=== PATIENT | female | born 1980 | race Caucasian/White ===

== ENCOUNTER 2019-08-24 15:40 | Emergency (ER) | payer OTHER ==
--- NOTE | 2019-08-24 16:15 | EDM.PDOC ---
ED HPI GENERAL MEDICAL PROBLEM - General Chief Complaint: Respiratory Problem Stated Complaint: FLU SYMPTOMS Time Seen by Provider: 08/24/19 16:15 Source of Information: Reports: Patient History Limitations: Reports: No Limitations - History of Present Illness INITIAL COMMENTS - FREE TEXT/NARRATIVE: HISTORY AND PHYSICAL: History of present illness: Patient is a 38-year-old female presents to the ED with complaint of cough and fevers. Patient states that for the past 5 days she has had pressure in her chest and yesterday developed a cough and body aches. She states that she fevers of 101F. She denies nausea, vomiting, diarrhea, abdominal pain, shortness of breath. She denies significant past medical history. Review of systems: As per history of present illness and below otherwise all systems reviewed and negative. Past medical history: As per history of present illness and as reviewed below otherwise noncontributory. Surgical history: As per history of present illness and as reviewed below otherwise noncontributory. Social history: No reported history of drug or alcohol abuse. Family history: As per history of present illness and as reviewed below otherwise noncontributory. Physical exam: General: Patient sitting comfortably in no acute distress and nontoxic appearing HEENT: Atraumatic, normocephalic, pupils reactive, negative for conjunctival pallor or scleral icterus, mucous membranes moist, throat clear, neck supple, nontender, trachea midline. No meningeal signs. Lungs: Clear to auscultation, breath sounds equal bilaterally, chest nontender. Heart: S1S2, regular, negative for clicks, rubs, or overt murmur. Abdomen: Soft, nondistended, nontender. Negative for masses or hepatosplenomegaly. Negative for costovertebral tenderness. No rigidity, rebound , guarding. Pelvis: Stable nontender. Genitourinary: Deferred. Rectal: Deferred. Extremities: Atraumatic, negative for cords or calf pain. Neurovascular unremarkable. Neuro: Awake, alert, oriented. Cranial nerves II through XII unremarkable. Cerebellum unremarkable. Motor and sensory unremarkable throughout. Exam nonfocal. Notes: Diagnostics: Influenza, CXR, EXG Therapeutics: none Prescriptions: Ventolin inhaler, azithromycin Impression: Acute bronchitis Plan: Take medications as instructed Follow up with primary care provider Return to ED as needed as discussed Definitive disposition and diagnosis as appropriate pending reevaluation and review of above. Other Treatments RESIDENTIAL THERAPIST: ibuprofen chest Pain Score (Numeric/FACES): 6 - Related Data Allergies Allergy/AdvReac Type Severity Reaction Status Date / Time codeine Allergy Headache Verified 08/24/19 15:58 Home Meds: Home Meds Albuterol [Ventolin HFA] 1 puff INH Q4H #1 inhaler 08/24/19 [Rx] Azithromycin [Zithromax] 250 mg PO ASDIRECTED #1 dosepk 08/24/19 [Rx] Levothyroxine Sodium [Synthroid] 137 mcg PO DAILY 08/24/19 [History] Past Medical History Cardiovascular History: Reports: High Cholesterol Psychiatric History: Reports: Anxiety, Depression Oncologic (Cancer) History: Reports: Thyroid - Infectious Disease History Infectious Disease History: Reports: Chicken Pox - Past Surgical History GI Surgical History: Reports: Cholecystectomy Social & Family History - Tobacco Use Smoking Status *Q: Never Smoker Second Hand Smoke Exposure: No - Caffeine Use Caffeine Use: Reports: Coffee, Tea - Recreational Drug Use Recreational Drug Use: No ED ROS GENERAL - Review of Systems Review Of Systems: Comprehensive ROS is negative, except as noted in HPI. ED EXAM, GENERAL - Physical Exam Exam: See Below (see dictation) Course - Vital Signs Last Recorded V/S: Last Vital Signs Temp 98.7 F 08/24/19 15:59 Pulse 98 08/24/19 15:59 Resp 16 08/24/19 15:59 BP 149/96 H 08/24/19 15:59 Pulse Ox 97 08/24/19 15:59 - Orders/Labs/Meds Orders: Active Orders 24 hr Category Date Time Status EKG Documentation Completion [RC] STAT Care 08/24/19 16:13 Active Departure - Departure Time of Disposition: 17:33 Disposition: Home, Self-Care 01 Condition: Good Clinical Impression: Acute bronchitis - Discharge Information Referrals: Alton Burgos MD [Primary Care Provider] - Forms: ED Department Discharge Additional Instructions: The following information is given to patients seen in the emergency department who are being discharged to home. This information is to outline your options for follow-up care. We provide all patients seen in our emergency department with a follow-up referral. The need for follow-up, as well as the timing and circumstances, are variable depending upon the specifics of your emergency department visit. If you don't have a primary care physician on staff, we will provide you with a referral. We always advise you to contact your personal physician following an emergency department visit to inform them of the circumstance of the visit and for follow-up with them and/or the need for any referrals to a consulting specialist. The emergency department will also refer you to a specialist when appropriate. This referral assures that you have the opportunity for follow-up care with a specialist. All of these measure are taken in an effort to provide you with optimal care, which includes your follow-up. Under all circumstances we always encourage you to contact your private physician who remains a resource for coordinating your care. When calling for follow-up care, please make the office aware that this follow-up is from your recent emergency room visit. If for any reason you are refused follow-up, please contact the [facility] Emergency Department at and asked to speak to the emergency department charge nurse. [facility] [address] [place] [id number] [place] [address] Take medications as instructed Follow up with primary care provider Return to ED as needed as discussed Sepsis Event Note - Evaluation Sepsis Screening Result: No Definite Risk - Focused Exam Vital Signs: Vital Signs Temp Pulse Resp BP Pulse Ox 08/24/19 15:59 98.7 F 98 16 149/96 H 97 Date Exam was Performed: 08/24/19 Time Exam was Performed: 17:32 - My Orders Last 24 Hours: My Active Orders 08/24/19 16:13 EKG Documentation Completion [RC] STAT - Assessment/Plan Last 24 Hours: My Active Orders 08/24/19 16:13 EKG Documentation Completion [RC] STAT
--- NOTE | 2019-08-24 17:32 | CR ---
Chest: 2 views of the chest were obtained. Comparison: No prior chest imaging. Heart size and mediastinum are normal. Lungs are clear with no acute parenchymal change. Bony structures are unremarkable. Surgical clips are seen within the upper abdomen. Impression: 1. Nothing acute is appreciated on 2 view chest x-ray. Diagnostic code #2 Study was dictated in [place] Standard Time
== END 2019-08-24 17:47 | disposition home or self-care (01) ==
LOC: MW.ED 15:40
DX: J20.9 Acute bronchitis, unspecified (principal); Z88.5 Allergy status to narcotic agent
CPT/HCPCS: 71046; 71046-26; 87804; 93005; 99284-25

== ENCOUNTER 2020-05-22 07:13 | Day surgery (SDC) | payer OTHER ==
[~2020-05-22 07:13] MED LIST: Glycopyrrolate 0.2 MG/ML SDV ONE; Lactated Ringers 1,000 ML IV SCH; Lidocaine 2% 5 ML SDV ONE; Midazolam 1 MG/ML 2 ML SDV ONE; Propofol 200 MG/20 ML SDV ONE; Sodium Chloride 0.9% 10 ML SDV IV PRN; Sodium Chloride 0.9% 10 ML Syringe FLUSH PRN; Sodium Chloride 0.9% 2.5 ML Syringe FLUSH PRN
--- NOTE | 2020-05-22 07:44 | PCM.PREANE ---
Preanesthetic Assessment - Anesthesia/Transfusion/Family Hx Anesthesia History: Prior Anesthesia Without Reaction Family History of Anesthesia Reaction: No Transfusion History: No Prior Transfusion(s) Intubation History: Unknown - Review of Systems General: No Symptoms Pulmonary: No Symptoms Cardiovascular: No Symptoms Gastrointestinal: Other (severe constipation) Neurological: No Symptoms Other: Reports: None - Physical Assessment Vital Signs: Last Vital Signs Temp 36.1 C 05/22/20 07:20 Pulse 81 05/22/20 07:20 Resp 16 05/22/20 07:20 BP 138/90 05/22/20 07:20 Pulse Ox 96 05/22/20 07:20 Height: 5 ft 3 in Weight: 108.862 kg ASA Class: 2 Mental Status: Alert & Oriented x3 Airway Class: Mallampati = 2 Dentition: Reports: Normal Dentition, Missing Tooth/Teeth (multiple on the back side) Thyro-Mental Finger Breadths: 3 Mouth Opening Finger Breadths: 3 ROM/Head Extension: Full Lungs: Clear to Auscultation, Normal Respiratory Effort Cardiovascular: Regular Rate, Regular Rhythm - Allergies Allergies/Adverse Reactions: Allergies Allergy/AdvReac Type Severity Reaction Status Date / Time adhesive tape Allergy Rash Verified 05/16/20 12:50 codeine Allergy Headache Verified 05/16/20 12:31 - Blood Blood Available: No - Anesthesia Plan Pre-Op Medication Ordered: None - Acknowledgements Anesthesia Type Planned: MAC Pt an Appropriate Candidate for the Planned Anesthesia: Yes Alternatives and Risks of Anesthesia Discussed w Pt/Guardian: Yes Pt/Guardian Understands and Agrees with Anesthesia Plan: Yes PreAnesthesia Questionnaire HEENT History: Reports: Impaired Vision Other HEENT History: wears glasses Cardiovascular History: Reports: High Cholesterol Respiratory History: Reports: None Gastrointestinal History: Reports: GERD Genitourinary History: Reports: None Musculoskeletal History: Reports: Fracture Other Musculoskeletal History: toe Neurological History: Reports: Migraines Psychiatric History: Reports: Anxiety, Depression Endocrine/Metabolic History: Reports: Obesity/BMI 30+ (BMI 42.5) Hematologic History: Reports: None Immunologic History: Reports: None Oncologic (Cancer) History: Reports: Thyroid (2016) Dermatologic History: Reports: Eczema, Other (See Below) Other Dermatologic History: 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 - Infectious Disease History Infectious Disease History: Reports: Chicken Pox, Scarlet Fever Other Infectious Disease History: when a child - Past Surgical History Head Surgeries/Procedures: Reports: None HEENT Surgical History: Reports: None Cardiovascular Surgical History: Reports: None GI Surgical History: Reports: Cholecystectomy, Colonoscopy (at ae 19), EGD (at age 19) Female Surgical History: Reports: Tubal Ligation Endocrine Surgical History: Reports: Thyroidectomy Musculoskeletal Surgical History: Reports: None Oncologic Surgical History: Reports: Other (See Below) Other Oncologic Surgeries/Procedures: states had thyroidectomy and radioactive iodine treatment Dermatological Surgical History: Reports: None - SUBSTANCE USE Tobacco Use Status *Q: Former Tobacco User Tobacco Use Within Last Twelve Months: Cigarettes - HOME MEDS Home Medications: Home Meds Levothyroxine Sodium [Synthroid] 125 mcg PO DAILY 08/24/19 [History] ARIPiprazole [Abilify] 1 tab PO DAILY 05/16/20 [History] Clindamycin Phosphate [Cleocin T 1% Gel] 1 applic TOP ASDIRECTED 05/16/20 [History] Diclofenac Sodium [Voltaren] 1 tab PO BID 05/16/20 [History] Doxycycline [Vibramycin] 1 tab PO BID 05/16/20 [History] Econazole Nitrate 1 applic TOP DAILY 05/16/20 [History] LORazepam [Ativan] 1 tab PO BID PRN 05/16/20 [History] Liothyronine Sodium 1 tab PO DAILY 05/16/20 [History] Mometasone Furoate/Dimethicone [Quinixil 0.1% Cream-5% Crm Kit] 1 applic TOP ASDIRECTED 05/16/20 [History] Omeprazole 1 tab PO DAILY 05/16/20 [History] Sertraline [Zoloft] 1 tab PO DAILY 05/16/20 [History] atorvaSTATin Calcium [Atorvastatin Calcium] 1 tab PO DAILY 05/16/20 [History] - CURRENT (IN HOUSE) MEDS Current Meds: Current Medications Lactated Ringer's (Ringers, Lactated) 1,000 mls @ 125 mls/hr IV ASDIRECTED DM Last Admin: 05/22/20 07:30 Dose: 125 mls/hr Documented by: Lactated Ringer's (Ringers, Lactated) 1,000 mls @ 125 mls/hr IV ASDIRECTED DM Sodium Chloride (Saline Flush) 10 ml FLUSH ASDIRECTED PRN PRN Reason: Keep Vein Open Sodium Chloride (Saline Flush) 2.5 ml FLUSH ASDIRECTED PRN PRN Reason: Keep Vein Open Sodium Chloride (Saline Flush) 10 ml FLUSH ASDIRECTED PRN PRN Reason: Keep Vein Open Sodium Chloride (Saline Flush) 2.5 ml FLUSH ASDIRECTED PRN PRN Reason: Keep Vein Open Sodium Chloride (Normal Saline) 10 ml IV ASDIRECTED PRN PRN Reason: IV Use Discontinued Medications Glycopyrrolate (Robinul) Confirm Administered Dose 0.2 mg .ROUTE .STK-MED ONE Stop: 05/22/20 07:09 Lidocaine (Xylocaine-Mpf 2%) Confirm Administered Dose 5 ml .ROUTE .STK-MED ONE Stop: 05/22/20 07:09 Midazolam HCl (Versed 1 Mg/Ml) Confirm Administered Dose 2 mg .ROUTE .STK-MED ONE Stop: 05/22/20 07:06 Propofol (Diprivan 20 Ml) Confirm Administered Dose 600 mg .ROUTE .STK-MED ONE Stop: 05/22/20 07:06
[2020-05-22] MEDS ORDERED: Propofol 200 MG/20 ML SDV ONE (09:02)
--- NOTE | 2020-05-22 09:28 | PCM.OPNOTE ---
- General Post-Op/Procedure Note Date of Surgery/Procedure: 05/22/20 Operative Procedure(s): EGD and biopsies. colonoscopy with polypectomies Findings: Gastritis Hemorrhoids Colon polyps Diverticulosis dictation number [id number] Pre Op Diagnosis: IBS, GERD Post-Op Diagnosis: Gastritis. Hemorrhoids. Colon polyps. Diverticulosis Anesthesia Technique: Moderate Sedation Primary Surgeon: Hernesto Davies Pathology: colon polyps EGD biopsies Complications: None Condition: Good Free Text/Narrative:: Intake & Output 05/21/20 05/22/20 05/22/20 22:59 06:59 14:59 Intake Total 950 Balance 950
--- NOTE | 2020-05-22 09:36 | PCM.POSTAN ---
POST ANESTHESIA ASSESSMENT - MENTAL STATUS Mental Status: Alert, Oriented - VITAL SIGNS Vital Signs: Last Vital Signs Temp 36.1 C 05/22/20 07:20 Pulse 73 05/22/20 09:25 Resp 20 05/22/20 09:25 BP 105/57 L 05/22/20 09:25 Pulse Ox 100 05/22/20 09:25 - RESPIRATORY Respiratory Status: Respiratory Rate WNL, Airway Patent, O2 Saturation Stable - CARDIOVASCULAR CV Status: Pulse Rate WNL, Blood Pressure Stable - GASTROINTESTINAL GI Status: No Symptoms - PAIN Pain Score: 0 - POST OP HYDRATION Hydration Status: Adequate & Stable - OBSERVATIONS Free Text/Narrative:: No anesthesia problems
--- NOTE | 2020-05-22 09:56 | PCM48HPAN ---
Post Anesthesia Note - EVALUATION WITHIN 48HRS OF ANESTHETIC Vital Signs in Normal Range: Yes Patient Participated in Evaluation: Yes Respiratory Function Stable: Yes Airway Patent: Yes Cardiovascular Function Stable: Yes Hydration Status Stable: Yes Pain Control Satisfactory: Yes Nausea and Vomiting Control Satisfactory: Yes Mental Status Recovered: Yes Vital Signs: Last Vital Signs Temp 36.1 C 05/22/20 07:20 Pulse 71 05/22/20 09:33 Resp 16 05/22/20 09:33 BP 118/59 L 05/22/20 09:33 Pulse Ox 100 05/22/20 09:33 - COMMENTS/OBSERVATIONS Free Text/Narrative:: No anesthesia problems
--- NOTE | 2020-05-22 12:09 | OR ---
SURGEON: KENNY PATRICK MD DATE OF PROCEDURE: 05/22/2020 PREOPERATIVE DIAGNOSES: 1. Gastroesophageal reflux disease. 2. Blood in stool. 3. Irritable bowel syndrome. POSTOPERATIVE DIAGNOSES: 1. Gastritis. 2. Hemorrhoids. 3. Colon polyps. 4. Scant diverticulosis. PROCEDURES PERFORMED: 1. Esophagogastroduodenoscopy with biopsies. 2. Colonoscopy with polypectomies. ANESTHESIA: With Anesthesiology. EXTENT OF COLONOSCOPY: To the cecum. WITHDRAWAL TIME FOR COLONOSCOPY: 19 minutes. LIMITATIONS: None. BOWEL PREP: Very good. REASON FOR PROCEDURE: The patient is a pleasant 39-year-old female. She says since she was 19, she has been told she had IBS. She goes to the bathroom about every 5 to 6 days. She says the first bowel movement is hard and then followed by liquid stool. This then cycles again. She does say after the hard bowel movement, she will see a little bit of blood in the stools. She also says she has hemorrhoids. The patient's last colonoscopy and EGD were back when she was 19 years old. She denies any first-degree relatives, but does have a first cousin with colon cancer. She says she does have GERD with feeling reflux; however, this is resolved as long as she takes omeprazole. PROCEDURE IN DETAIL: Physical examination was performed. The risks and benefits associated with the procedure were explained to the patient in detail. The patient verbalized understanding of the same. The patient was then connected to the appropriate monitoring devices and IV was started. EKG, pulse, pulse oximetry, blood pressure, and capnography were monitored throughout the procedure. Continuous oxygen and sedation were provided by the anesthesiologist. A bite block was placed and sedation began. After adequate sedation was achieved, an upper endoscope was advanced under direct visualization without difficulty into the upper GI tract. The anatomy and mucosa of the esophagus, GE junction, stomach, pylorus, and at least the second part of duodenum were inspected. Duodenum appeared normal. Scope was brought back to the stomach. Both retro and antegrade views of the stomach were done. The patient did have some mild gastritis, but no ulcerations seen in the stomach. Biopsies were taken of the pylorus to check for H pylori and also did perform random stomach biopsies. The scope was brought to the GE junction. The GE junction was approximately 37 cm from the incisors. The GE junction had a good squamocolumnar junction. The scope was brought back into the stomach was. The stomach was desufflated. Scope was brought up through the esophagus. The esophagus appeared normal. Scope was removed, and this part of the procedure was terminated. The gloves and scope were changed. The patient was placed in left lateral decubitus position, and a rectal exam was done. The patient did have some moderate-size external hemorrhoids. These were noninflamed. No stigmata of recent bleeding. Now, a well-lubricated Olympus colonoscope was entered into the rectum and advanced under direct visualization to the level of the cecum. The cecum was identified by both visual and anatomic landmarks. Photograph was taken of the cecal cap and ileocecal valve. The scope was then slowly withdrawn in a somewhat circular fashion looking at the color, texture, anatomy, and integrity of the mucosa from the cecum to the anal canal. The patient did have residual liquid stool. This was suctioned and irrigated out for a good look at the mucosa. The patient did have a polyp at 90 cm. This appeared to be in the transverse colon. This was removed. She had 2 polyps right next to each other. All polyps were removed with cold biopsy polypectomy along with hot snare polypectomy. The patient did have some very scant diverticulosis in her sigmoid colon. The patient had then 2 smaller polyps at 10 cm. These were both removed with cold biopsy polypectomy. The scope was retroflexed in the rectum. Again, she had some hemorrhoids, noninflamed. The scope was completely removed, and the procedure was terminated. ENDOSCOPIC DIAGNOSES: 1. Gastritis. 2. Hemorrhoids. 3. Colon polyps, 2 at 90 cm, and 2 at 10 cm. 4. Scant diverticulosis. RECOMMENDATIONS: Followup colonoscopy will depend on pathology. Most likely, will need another one in 3 years. She should try starting some type of bowel regimen to get her bowel movements more regular. Again, the patient may see me for hemorrhoids, but on her last clinic visit, she was not interested really in any repair. Also, if she gets her bowel movements better, these should improve. EGD. She did have gastritis and should continue her omeprazole and follow up with me in the clinic to go over the pathology. FILIPPO / ANDI /[id number] THOM
== END 2020-05-22 09:55 | disposition home or self-care (01) ==
LOC: MW.SDS 07:13
PROVIDERS: ATTEND Surgery
DX: D12.3 Benign neoplasm of transverse colon (principal); K29.70 Gastritis, unspecified, without bleeding; K57.30 Diverticulosis of large intestine without perforation or abscess without bleeding; K64.9 Unspecified hemorrhoids; F41.9 Anxiety disorder, unspecified; F32.9 Major depressive disorder, single episode, unspecified; E78.5 Hyperlipidemia, unspecified; K58.9 Irritable bowel syndrome, unspecified; K21.9 Gastro-esophageal reflux disease without esophagitis; E78.00 Pure hypercholesterolemia, unspecified; E66.9 Obesity, unspecified; Z68.41 Body mass index [BMI] 40.0-44.9, adult; Z79.899 Other long term (current) drug therapy; Z90.09 Acquired absence of other part of head and neck; Z88.5 Allergy status to narcotic agent; Z91.048 Other nonmedicinal substance allergy status
CPT/HCPCS: 43239; 45380; 45385; 81025; 88305; 88312; J2001; J2250; J2704; J3490; J7120; 00813

== ENCOUNTER 2021-04-25 13:32 | Emergency (ER) | payer BC ==
--- NOTE | 2021-04-25 13:56 | EDM.PDOC ---
ED HPI GENERAL MEDICAL PROBLEM - General Chief Complaint: General Stated Complaint: TOOTH PAIN Time Seen by Provider: 04/25/21 13:49 Source of Information: Reports: Patient History Limitations: Reports: No Limitations - History of Present Illness INITIAL COMMENTS - FREE TEXT/NARRATIVE: HISTORY AND PHYSICAL: History of present illness: The patient is a 40-year-old female who presents to the emergency room with complaint complaints of left lower posterior molar pain due to a broken tooth that happened approximately 1 month ago. The patient states that she has not had dental insurance and has been unable to see a dentist. She does state that her dental insurance should kick in and she hopes to see the dentist on Tuesday. Patient has not been on an antibiotic for this. The patient states that she has been using ibuprofen or Aleve along with Orajel. Patient denies any fever, chills, headache, change in vision, syncope or near syncope. Denies any chest pain, back pain, shortness of breath or cough. Denies any abdominal pain, nausea, vomiting, diarrhea, constipation or dysuria. Has not noted any blood in urine or stool. Patient has been eating and drinking appropriately. Review of systems: As per history of present illness and below otherwise all systems reviewed and negative. Past medical history: As per history of present illness and as reviewed below otherwise noncontributory. Surgical history: As per history of present illness and as reviewed below otherwise noncontributory. Social history: See social history for further information Family history: As per history of present illness and as reviewed below otherwise noncontributory. Physical exam: General: Well developed and well nourished. Alert and orientated x 3. Nontoxic in appearance and in no acute distress. Vital signs are stable and have been reviewed by me. Nursing notes were reviewed. HEENT: Atraumatic, normocephalic, pupils equal and reactive bilaterally, negative for conjunctival pallor or scleral icterus, mucous membranes moist, TMs normal bilaterally, throat clear, neck supple, nontender, trachea midline. Left posterior molar poor dentition along with broken tooth at the gumline. Noted erythema at the gumline. No obvious abscess noted. No drooling or trismus noted. No meningeal signs. No hot potato voice noted. Lungs: . Normal work of breathing, no accessory muscles used. Skin: Intact, warm, dry. No lesions or rashes noted. Hematologic: No petechiae or purpra. Mucosa appropriate color and normal nail bed color and refill. Extremities: Atraumatic, moves all extremities per self without difficulty or deficits, negative for cords or calf pain. Neurovascular unremarkable. Neuro: Awake, alert, oriented. Cranial nerves II through XII unremarkable. Cerebellum unremarkable. Motor and sensory unremarkable throughout. Exam nonfocal. Psychiatric: Mood and affect are appropriate. Normal thought process. Answering questions appropriately. Notes: *This patient was seen and evaluated during the 2019 SARS-CoV-2 novel coronavirus pandemic period. Community viral transmission is ongoing at time of this encounter and the emergency department is operating under pandemic response procedures. As needed above the patient is a 40-year-old female who presents to the emergency room with complaints of left lower posterior molar pain after fracturing her tooth approximately 1 month ago. The the area in question does appear to have an infection. I will treat the patient with Toradol and Tylenol in the emergency department and give her a dose of penicillin. I will describe penicillin VK 500 mg every 8 hours for 10 days and tramadol 50 mg p.o. every 4 hours as needed for pain #8. I instructed the patient that she needs to seek definitive care for this. Patient with mom. I have talked with the patient about today's findings, in addition to providing specific details for plan of care. Reassessment at the time of disposition demonstrates that the patient is in no acute distress. The patient is stable for discharge, counseling was provided and we discussed in great detail signs and symptoms that would prompt them to return to the Emergency Department. Medication, follow up and supportive care measures were reviewed and discussed. Voices understanding and is agreeable to plan of care. Denies any further questions or concerns at this time. Therapeutics: Tramadol 50 mg p.o., dental ball, penicillin 500 mg p.o. Prescription: Penicillin VK 500 mg p.o. every 8 hours for 10 days and tramadol 50 mg every 4 hours as needed #8 Impression: Dental caries Plan: 1. You were evaluated today on an emergent basis. Your left lower dental pain was evaluated and found to have an infection. We treated your pain with tramadol and/or a dental ball as the emergency department we gave you your first dose of penicillin. I have prescribed penicillin the 500 mg every 8 hours for 10 days and tramadol 50 mg by mouth every 4 hours as needed for pain #8. You need to keep your appointment Tuesday with your dentist for definitive care. 2. You can alternate Tylenol and ibuprofen as needed for pain and fever management. 3. We encourage you to follow up with your primary care provider and/or recommended specialist in the next few days for re-evaluation and further care/management. 4. If your symptoms should worsen, new symptoms develop or any of the signs and symptoms we discussed should arise please return to the emergency room or call 911 (if needed). Definitive disposition and diagnosis as appropriate pending reevaluation and review of above. Tooth/Teeth Pain Score (Numeric/FACES): 9 - Related Data Allergies Allergy/AdvReac Type Severity Reaction Status Date / Time adhesive tape Allergy Rash Verified 04/25/21 21:42 codeine Allergy Headache Verified 04/25/21 21:42 Home Meds: Home Meds Levothyroxine Sodium [Synthroid] 125 mcg PO DAILY 08/24/19 [History] ARIPiprazole [Abilify] 1 tab PO DAILY 05/16/20 [History] Clindamycin Phosphate [Cleocin T 1% Gel] 1 applic TOP ASDIRECTED 05/16/20 [History] Diclofenac Sodium [Voltaren] 1 tab PO BID 05/16/20 [History] Doxycycline [Vibramycin] 1 tab PO BID 05/16/20 [History] Econazole Nitrate 1 applic TOP DAILY 05/16/20 [History] LORazepam [Ativan] 1 tab PO BID PRN 05/16/20 [History] Liothyronine Sodium 1 tab PO DAILY 05/16/20 [History] Mometasone Furoate/Dimethicone [Quinixil 0.1% Cream-5% Crm Kit] 1 applic TOP ASDIRECTED 05/16/20 [History] Omeprazole 1 tab PO DAILY 05/16/20 [History] Sertraline [Zoloft] 1 tab PO DAILY 05/16/20 [History] atorvaSTATin Calcium [Atorvastatin Calcium] 1 tab PO DAILY 05/16/20 [History] Penicillin V Potassium 500 mg PO Q8HR #30 tab 04/25/21 [Rx] Past Medical History HEENT History: Reports: Impaired Vision Other HEENT History: wears glasses Cardiovascular History: Reports: High Cholesterol Respiratory History: Reports: None Gastrointestinal History: Reports: GERD Genitourinary History: Reports: None Musculoskeletal History: Reports: Fracture Other Musculoskeletal History: toe Neurological History: Reports: Migraines Psychiatric History: Reports: Anxiety, Depression Endocrine/Metabolic History: Reports: Obesity/BMI 30+ (BMI 42.5) Other Endocrine/Metabolic History: thyroid cancer 2016 Hematologic History: Reports: None Immunologic History: Reports: None Oncologic (Cancer) History: Reports: Thyroid (2016) Dermatologic History: Reports: Eczema, Other (See Below) Other Dermatologic History: 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 - Infectious Disease History Infectious Disease History: Reports: Chicken Pox, Scarlet Fever Other Infectious Disease History: when a child - Past Surgical History Head Surgeries/Procedures: Reports: None HEENT Surgical History: Reports: None Cardiovascular Surgical History: Reports: None GI Surgical History: Reports: Cholecystectomy, Colonoscopy (at ae 19), EGD (at age 19) Female Surgical History: Reports: Tubal Ligation Endocrine Surgical History: Reports: Thyroidectomy Musculoskeletal Surgical History: Reports: None Oncologic Surgical History: Reports: Other (See Below) Other Oncologic Surgeries/Procedures: states had thyroidectomy and radioactive iodine treatment Dermatological Surgical History: Reports: None Social & Family History - Caffeine Use Caffeine Use: Reports: Coffee, Tea ED ROS GENERAL - Review of Systems Review Of Systems: Comprehensive ROS is negative, except as noted in HPI. ED EXAM, GENERAL - Physical Exam Exam: See Below (See dictation) Course - Vital Signs Last Recorded V/S: Last Vital Signs Temp 97.5 F 04/25/21 14:00 Pulse 83 04/25/21 14:38 Resp 18 04/25/21 14:38 BP 138/82 04/25/21 14:38 Pulse Ox 97 04/25/21 14:38 - Orders/Labs/Meds Meds: Medications Discontinued Medications Generic Name Dose Route Start Last Admin Trade Name Freq PRN Reason Stop Dose Admin Benzocaine 2 each 04/25/21 14:11 04/25/21 14:34 Benzocaine 20% Topical [place] Ud MUCMEM 04/25/21 14:12 2 each ONETIME ONE Administration Ketorolac Tromethamine 60 mg 04/25/21 14:11 Ketorolac 60 Mg/2 Ml Sdv IM 04/25/21 14:12 ONETIME ONE Lidocaine HCl 15 ml 04/25/21 14:11 04/25/21 14:34 Lidocaine 2% Viscous Solution 15 Ml Cup PO 04/25/21 14:12 15 ml ONETIME ONE Administration Penicillin V Potassium 500 mg 04/25/21 14:19 04/25/21 14:35 Penicillin V Potassium 500 Mg Tab PO 04/25/21 14:20 500 mg ONETIME STA Administration Tramadol HCl 50 mg 04/25/21 14:14 04/25/21 14:35 Tramadol 50 Mg Tab PO 04/25/21 14:15 50 mg ONETIME ONE Administration Departure - Departure Time of Disposition: 14:28 Disposition: Home, Self-Care 01 Preliminary Cause of *Q: Cardiac Arrest Condition: Good Clinical Impression: Dental caries - Discharge Information *PRESCRIPTION DRUG MONITORING PROGRAM REVIEWED*: No *COPY OF PRESCRIPTION DRUG MONITORING REPORT IN PATIENT STEVE: No Prescriptions: Penicillin V Potassium 500 mg PO Q8HR #30 tab Instructions: Dental Caries, Adult, [id number] Referrals: Keily Shukla DO [Primary Care Provider] - Forms: ED Department Discharge Additional Instructions: The following information is given to patients seen in the emergency department who are being discharged to home. This information is to outline your options for follow-up care. We provide all patients seen in our emergency department with a follow-up referral. The need for follow-up, as well as the timing and circumstances, are variable depending upon the specifics of your emergency department visit. If you don't have a primary care physician on staff, we will provide you with a referral. We always advise you to contact your personal physician following an emergency department visit to inform them of the circumstance of the visit and for follow-up with them and/or the need for any referrals to a consulting specialist. The emergency department will also refer you to a specialist when appropriate. This referral assures that you have the opportunity for follow-up care with a specialist. All of these measure are taken in an effort to provide you with optimal care, which includes your follow-up. Under all circumstances we always encourage you to contact your private physician who remains a resource for coordinating your care. When calling for follow-up care, please make the office aware that this follow-up is from your recent emergency room visit. If for any reason you are refused follow-up, please contact the [facility] Emergency Department at and asked to speak to the emergency department charge nurse. Jarrett Peck [facility] - [facility] [address] [place] [id number] [facility] [address] [place] [address] Plan: 1. You were evaluated today on an emergent basis. Your left lower dental pain was evaluated and found to have an infection. We treated your pain with tramadol and/or a dental ball as the emergency department we gave you your first dose of penicillin. I have prescribed penicillin the 500 mg every 8 hours for 10 days and tramadol 50 mg by mouth every 4 hours as needed for pain #8. You need to keep your appointment Tuesday with your dentist for definitive care. 2. You can alternate Tylenol and ibuprofen as needed for pain and fever management. 3. We encourage you to follow up with your primary care provider and/or recommended specialist in the next few days for re-evaluation and further care/management. 4. If your symptoms should worsen, new symptoms develop or any of the signs and symptoms we discussed should arise please return to the emergency room or call 911 (if needed).
[2021-04-25] MEDS ORDERED: Ketorolac 60 MG/2 ML SDV IM ONE (14:11)
[2021-04-25] MEDS ORDERED: Lidocaine 2% Viscous Solution 15 ML Cup PO ONE (14:11)
[2021-04-25] MEDS ORDERED: Benzocaine 20% Topical Spray UD MUCMEM ONE (14:11)
[2021-04-25] MEDS ORDERED: traMADol 50 MG Tab PO ONE (14:14)
[2021-04-25] MEDS ORDERED: Penicillin V Potassium 500 MG Tab PO STA (14:19)
== END 2021-04-25 14:40 | disposition home or self-care (01) ==
LOC: MW.ED 13:32
DX: K02.9 Dental caries, unspecified (principal); E78.00 Pure hypercholesterolemia, unspecified; K21.9 Gastro-esophageal reflux disease without esophagitis; E66.9 Obesity, unspecified; Z68.41 Body mass index [BMI] 40.0-44.9, adult; Z91.048 Other nonmedicinal substance allergy status; Z88.5 Allergy status to narcotic agent; Z79.899 Other long term (current) drug therapy
CPT/HCPCS: 99282; A9270

== ENCOUNTER 2021-04-25 21:33 | Emergency (ER) | payer BC ==
[2021-04-25] MEDS ORDERED: Morphine 10 MG/ML Syringe IM ONE (21:55)
[2021-04-25] MEDS ORDERED: Ondansetron 4 MG Tab.DIS PO ONE (21:55)
--- NOTE | 2021-04-25 21:58 | EDM.PDOC ---
ED HPI GENERAL MEDICAL PROBLEM - General Chief Complaint: General Stated Complaint: TOOTH PAIN Time Seen by Provider: 04/25/21 21:45 - History of Present Illness INITIAL COMMENTS - FREE TEXT/NARRATIVE: 40-year-old female seen earlier today for left lower molar pain she has had gradually worsening pain for the last month but has more recently become bearable. She has an appointment with her dentist scheduled for the day after t omorrow. She presents because the tramadol and she was given here along with the lidocaine ball or not improving her symptoms. No fever no difficulty with swallowing. Dental pain is constant severe without radiation or other associated symptoms. Left Lower Tooth/Teeth Pain Score (Numeric/FACES): 9 - Related Data Allergies Allergy/AdvReac Type Severity Reaction Status Date / Time adhesive tape Allergy Rash Verified 04/25/21 21:42 codeine Allergy Headache Verified 04/25/21 21:42 Home Meds: Home Meds Levothyroxine Sodium [Synthroid] 125 mcg PO DAILY 08/24/19 [History] ARIPiprazole [Abilify] 1 tab PO DAILY 05/16/20 [History] Clindamycin Phosphate [Cleocin T 1% Gel] 1 applic TOP ASDIRECTED 05/16/20 [History] Diclofenac Sodium [Voltaren] 1 tab PO BID 05/16/20 [History] Doxycycline [Vibramycin] 1 tab PO BID 05/16/20 [History] Econazole Nitrate 1 applic TOP DAILY 05/16/20 [History] LORazepam [Ativan] 1 tab PO BID PRN 05/16/20 [History] Liothyronine Sodium 1 tab PO DAILY 05/16/20 [History] Mometasone Furoate/Dimethicone [Quinixil 0.1% Cream-5% Crm Kit] 1 applic TOP ASDIRECTED 05/16/20 [History] Omeprazole 1 tab PO DAILY 05/16/20 [History] Sertraline [Zoloft] 1 tab PO DAILY 05/16/20 [History] atorvaSTATin Calcium [Atorvastatin Calcium] 1 tab PO DAILY 05/16/20 [History] Penicillin V Potassium 500 mg PO Q8HR #30 tab 04/25/21 [Rx] Past Medical History HEENT History: Reports: Impaired Vision Other HEENT History: wears glasses Cardiovascular History: Reports: High Cholesterol Respiratory History: Reports: None Gastrointestinal History: Reports: GERD Genitourinary History: Reports: None Musculoskeletal History: Reports: Fracture Other Musculoskeletal History: toe Neurological History: Reports: Migraines Psychiatric History: Reports: Anxiety, Depression Endocrine/Metabolic History: Reports: Obesity/BMI 30+ Other Endocrine/Metabolic History: thyroid cancer 2016 Hematologic History: Reports: None Immunologic History: Reports: None Oncologic (Cancer) History: Reports: Thyroid Dermatologic History: Reports: Eczema, Other (See Below) Other Dermatologic History: 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 - Infectious Disease History Infectious Disease History: Reports: Chicken Pox, Scarlet Fever Other Infectious Disease History: when a child - Past Surgical History Head Surgeries/Procedures: Reports: None HEENT Surgical History: Reports: None Cardiovascular Surgical History: Reports: None GI Surgical History: Reports: Cholecystectomy, Colonoscopy, EGD Female Surgical History: Reports: Tubal Ligation Endocrine Surgical History: Reports: Thyroidectomy Musculoskeletal Surgical History: Reports: None Oncologic Surgical History: Reports: Other (See Below) Other Oncologic Surgeries/Procedures: states had thyroidectomy and radioactive iodine treatment Dermatological Surgical History: Reports: None Social & Family History - Family History Family Medical History: No Pertinent Family History - Tobacco Use Tobacco Use Status *Q: Never Tobacco User - Caffeine Use Caffeine Use: Reports: None - Recreational Drug Use Recreational Drug Use: No ED ROS GENERAL - Review of Systems Review Of Systems: See Below Free Text/Narrative/Comment: General: No fever. ENT: Per HPI Neck: No neck stiffness. Respiratory: No shortness of breath. Cardiac: No chest pain. Gastrointestinal: No nausea, vomiting or abdominal pain. ED EXAM, GENERAL - Physical Exam Exam: See Below Free Text/Narrative:: General Appearance: No acute distress, appears comfortable HEENT: Normocephalic/atraumatic, sclera anicteric, mucous membranes moist, left lower molar is clearly fractured no trismus no stridor no submental or sublingual swelling Neck: Normal range of motion Chest and Lungs: Normal work of breathing Cardiovascular: Intact distal perfusion Psychiatric: Appropriate, cooperative Course - Vital Signs Last Recorded V/S: Last Vital Signs Temp 98.2 F 04/25/21 21:43 Pulse 94 04/25/21 21:43 Resp 18 04/25/21 21:43 BP 153/95 H 04/25/21 21:43 Pulse Ox 97 04/25/21 21:43 - Orders/Labs/Meds Meds: Medications Discontinued Medications Generic Name Dose Route Start Last Admin Trade Name Tony PRN Reason Stop Dose Admin Morphine Sulfate 6 mg 04/25/21 21:55 Morphine 10 Mg/Ml Syringe IM 04/25/21 21:56 ONETIME ONE Ondansetron HCl 4 mg 04/25/21 21:55 Ondansetron 4 Mg Tab.Dis PO 04/25/21 21:56 ONETIME ONE Departure - Departure Time of Disposition: 21:57 Disposition: Home, Self-Care 01 Condition: Good Clinical Impression: Tooth fracture - Discharge Information *PRESCRIPTION DRUG MONITORING PROGRAM REVIEWED*: Yes *COPY OF PRESCRIPTION DRUG MONITORING REPORT IN PATIENT STEVE: No Instructions: Tooth Injuries, [id number] Referrals: Keily Shukla, [Primary Care Provider] - Forms: ED Department Discharge Additional Instructions: Please be sure to keep your follow-up appointment with your dentist on Tuesday. Do not take Elizabeth and tramadol together. Do not take the Elizabeth for the next 6 hours as you have been given a shot of morphine here in the emergency room. I also recommend that you take 600 mg of ibuprofen with food every 8 hours until you follow-up with a dentist. The following information is given to patients seen in the emergency department who are being discharged to home. This information is to outline your options for follow-up care. We provide all patients seen in our emergency department with a follow-up referral. The need for follow-up, as well as the timing and circumstances, are variable depending upon the specifics of your emergency department visit. If you don't have a primary care physician on staff, we will provide you with a referral. We always advise you to contact your personal physician following an emergency department visit to inform them of the circumstance of the visit and for follow-up with them and/or the need for any referrals to a consulting specialist. The emergency department will also refer you to a specialist when appropriate. This referral assures that you have the opportunity for follow-up care with a specialist. All of these measure are taken in an effort to provide you with opt imal care, which includes your follow-up. Under all circumstances we always encourage you to contact your private physician who remains a resource for coordinating your care. When calling for follow-up care, please make the office aware that this follow-up is from your recent emergency room visit. If for any reason you are refused follow-up, please contact the [facility] Emergency Department at and asked to speak to the emergency department charge nurse. Sepsis Event Note (ED) - Focused Exam Vital Signs: Vital Signs Temp Pulse Resp BP Pulse Ox 04/25/21 21:43 98.2 F 94 18 153/95 H 97 - Assessment/Plan Assessment:: 40-year-old female presenting with persistent dental pain. Discussed options of dental block versus temporizing morphine injection versus upgrading to Elizabeth rather than tramadol. Patient opted for injection of morphine in operating to Elizabeth. We discussed the importance of not combining the Elizabeth with the tramadol or with any Tylenol-containing compounds. There are no findings on exam that suggest deep space infection of the head or neck there is no dental abscess that I can appreciate. Patient already has appropriate follow-up scheduled for Tuesday.
[2021-04-25] MEDS ORDERED: Morphine 4 MG/ML Syringe IM ONE (22:19)
[2021-04-25] MEDS ORDERED: Morphine 4 MG/ML VIAL ONE (22:22)
== END 2021-04-25 22:39 | disposition home or self-care (01) ==
LOC: MW.ED 21:33
DX: K03.81 Cracked tooth (principal); E78.00 Pure hypercholesterolemia, unspecified; K21.9 Gastro-esophageal reflux disease without esophagitis; E66.9 Obesity, unspecified; Z68.41 Body mass index [BMI] 40.0-44.9, adult; Z88.5 Allergy status to narcotic agent; Z91.048 Other nonmedicinal substance allergy status; Z79.899 Other long term (current) drug therapy
CPT/HCPCS: 96372; 99282; A9270; J2270

== ENCOUNTER 2021-09-02 12:07 | Emergency (ER) | payer BC ==
[2021-09-02] MEDS ORDERED: Sodium Chloride 0.9% 2.5 ML Syringe FLUSH PRN (12:23)
[2021-09-02] MEDS ORDERED: Sodium Chloride 0.9% 10 ML Syringe FLUSH PRN (12:23)
[2021-09-02 13:04] LABS: BLOOD UREA NITROGEN,BUN 9 mg/dL (7.0-18.0); CARBON DIOXIDE,CO2 24.5 mmol/L (21.0-32.0); CHLORIDE,CL 101 mmol/L (98-107); GLUCOSE RANDOM 99 mg/dL (74-106); LIPASE 90 U/L (73-393); POTASSIUM,K 3.7 mmol/L (3.5-5.1); SODIUM,NA 139 mmol/L (136-145)
[2021-09-02] MEDS ORDERED: Orphenadrine 60 MG/2 ML Inj IM ONE (13:32)
== END 2021-09-02 13:54 | disposition home or self-care (01) ==
LOC: MW.ED 12:07
DX: R07.89 Other chest pain (principal); E78.00 Pure hypercholesterolemia, unspecified; K21.9 Gastro-esophageal reflux disease without esophagitis; F41.9 Anxiety disorder, unspecified; F32.A Depression, unspecified; E66.9 Obesity, unspecified; Z91.048 Other nonmedicinal substance allergy status; Z79.899 Other long term (current) drug therapy
CPT/HCPCS: 36415; 71045; 80053; 83690; 84484; 85025; 85379; 85610; 93005; 96372; 99285; J2360; 99284

== ENCOUNTER 2023-02-01 21:17 | Emergency (ER) | payer BC ==
[2023-02-01] MEDS ORDERED: diphenhydrAMINE 50 MG/ML SDV IVPUSH ONE (22:55)
[2023-02-01] MEDS ORDERED: Sodium Chloride 0.9% 1,000 ML IV ONE (22:55)
[2023-02-01] MEDS ORDERED: Sodium Chloride 0.9% 10 ML Syringe FLUSH PRN (22:55)
[2023-02-01] MEDS ORDERED: Ketorolac 30 MG/ML SDV IVPUSH ONE (22:55)
[2023-02-01] MEDS ORDERED: Sodium Chloride 0.9% 2.5 ML Syringe FLUSH PRN (22:55)
[2023-02-01] MEDS ORDERED: Dexamethasone 10 MG/ML SDV IVPUSH ONE (22:55)
[2023-02-01] MEDS ORDERED: Prochlorperazine 10 MG/2 ML SDV IVPUSH ONE (22:56)
[2023-02-01 23:34] LABS: BASOPHILS PERCENT AUTO 0.4 % (0.0-1.5); EOSINOPHILS ABSOLUTE AUTO 0.2 K/uL (0.0-0.7); EOSINOPHILS PERCENT AUTO 2.4 % (0.0-7.0); HEMATOCRIT 35.8 % (36.0-46.0); HEMOGLOBIN 11.6 g/dL (12.0-16.0); LYMPHOCYTES ABSOLUTE AUTO 2.9 K/uL (0.6-2.4); LYMPHOCYTES PERCENT AUTO 30.3 % (16.0-40.0); MEAN CORPUSCULAR HEMOGLOBIN 26.9 pg (27.0-32.0); MEAN CORPUSCULAR HGB CONC 32.4 g/dL (31.0-37.0); MEAN CORPUSCULAR VOLUME 83.1 fL (80.0-98.0); MONOCYTES ABSOLUTE AUTO 0.6 K/uL (0.0-0.8); MONOCYTES PERCENT AUTO 6.8 % (0.0-15.0); NEUTROPHILS ABSOLUTE AUTO 5.7 K/uL (1.4-5.7); NEUTROPHILS PERCENT AUTO 60.1 % (48.0-80.0); NRBC ABSOLUTE 0 K/uL; PLATELET COUNT,PLT 329 K/uL (150-400); RED BLOOD CELL COUNT 4.31 M/uL (4.30-5.90); WHITE BLOOD CELL COUNT,WBC 9.44 K/uL (4.0-11.0)
[2023-02-02 00:17] LABS: A/G RATIO 0.7 (0.9-1.6); ALBUMIN 3.2 g/dL (3.4-5.0); BILIRUBIN TOTAL 0.2 mg/dL (0.2-1.0); CALCIUM 8.7 mg/dL (8.5-10.1); CARBON DIOXIDE,CO2 26.8 mmol/L (21.0-32.0); EST CRCL DRUG DOSING (CG) 61.86 mL/min; POTASSIUM,K 3.7 mmol/L (3.5-5.1); PROTEIN TOTAL,TP 7.5 g/dL (6.4-8.2)
== END 2023-02-02 01:33 | disposition home or self-care (01) ==
LOC: MW.ED 21:17
DX: G43.909 Migraine, unspecified, not intractable, without status migrainosus (principal); K21.9 Gastro-esophageal reflux disease without esophagitis; E66.9 Obesity, unspecified; Z91.09 Other allergy status, other than to drugs and biological substances; Z88.5 Allergy status to narcotic agent; Z79.899 Other long term (current) drug therapy; Z68.41 Body mass index [BMI] 40.0-44.9, adult
CPT/HCPCS: 36415; 80053; 85025; 96361; 96374; 96375; 99284; J0780; J1100; J1200; J1885; J3490; J7030

== ENCOUNTER 2023-10-20 12:35 | Emergency (ER) | payer BC, MEDICAID ==
[2023-10-20] MEDS: Diphtheria,Pertussis(Acell),Tetanus Vaccine 0.5 ML Syringe IM ONE (13:31)
[2023-10-20] MEDS: Lidocaine/Epineph/Tetracaine 3 ML Syringe TOP ONE (13:31)
[2023-10-20] MEDS: Lidocaine 1% 5 ML VIAL INJECT ONE (14:44)
[2023-10-20] MEDS: Ibuprofen 800 MG Tab PO ONE (14:47)
[2023-10-20] MEDS: Bacitracin Oint 1 GM U/D Packet TOP ONE (15:59)
[2023-10-20] MEDS: Acetaminophen/HYDROcodone 325-5 MG Tab PO ONE (16:42)
== END 2023-10-20 16:46 | disposition home or self-care (01) ==
LOC: MW.ED 12:35
DX: S01.511A Laceration without foreign body of lip, initial encounter (principal); E66.9 Obesity, unspecified; Z23 Encounter for immunization; Z75.8 Other problems related to medical facilities and other health care; Z91.018 Allergy to other foods; Z88.5 Allergy status to narcotic agent; Z79.899 Other long term (current) drug therapy; Z90.49 Acquired absence of other specified parts of digestive tract; Z68.42 Body mass index [BMI] 45.0-49.9, adult; W01.10XA Fall on same level from slipping, tripping and stumbling with subsequent striking against unspecified object, initial encounter
CPT/HCPCS: 90471; 90715; 99283; A9270; J3490

== ENCOUNTER 2024-04-18 13:21 | Emergency (ER) | payer MEDICAID | END 2024-04-18 14:32 | disposition home or self-care (01) | LOC: MW.ED 13:21 | DX: L02.416 Cutaneous abscess of left lower limb (principal); L73.2 Hidradenitis suppurativa; K21.9 Gastro-esophageal reflux disease without esophagitis; E78.00 Pure hypercholesterolemia, unspecified; E66.9 Obesity, unspecified; Z79.899 Other long term (current) drug therapy; Z88.5 Allergy status to narcotic agent; Z91.048 Other nonmedicinal substance allergy status | CPT/HCPCS: 99283 ==

== ENCOUNTER 2024-08-26 15:58 | Emergency (ER) | payer BC ==
[2024-08-26 16:21] LABS: APPEARANCE,URINE CLEAR; BILIRUBIN,URINE NEGATIVE (NEGATIVE); COLOR,URINE YELLOW; GLUCOSE,URINE NEGATIVE (NEGATIVE); KETONES,URINE NEGATIVE (NEGATIVE); LEUKOCYTE ESTERASE,URINE TRACE (NEGATIVE); NITRITE,URINE NEGATIVE (NEGATIVE); OCCULT BLOOD,URINE NEGATIVE (NEGATIVE); PROTEIN,URINE NEGATIVE (NEGATIVE); UROBILINOGEN,URINE 0.2 EU/dL (<2.0)
[2024-08-26 16:36] LABS: BACTERIA,URINE FEW (NEGATIVE); EPITHELIAL CELLS,URINE FEW (NONE-FEW); RBC,URINE 0-1 (0-2/HPF); WBC,URINE 0-2 (0-5/HPF)
[2024-08-26] MEDS: Nitrofurantoin Monohydrate/Macrocrystalline 100 MG Cap PO STA (16:44)
== END 2024-08-26 16:51 | disposition home or self-care (01) ==
LOC: MW.ED 15:58
DX: N39.0 Urinary tract infection, site not specified (principal); K21.9 Gastro-esophageal reflux disease without esophagitis; E66.9 Obesity, unspecified; Z68.41 Body mass index [BMI] 40.0-44.9, adult; Z90.49 Acquired absence of other specified parts of digestive tract; Z88.5 Allergy status to narcotic agent; Z91.048 Other nonmedicinal substance allergy status; Z79.890 Hormone replacement therapy; Z79.899 Other long term (current) drug therapy; Z75.8 Other problems related to medical facilities and other health care
CPT/HCPCS: 81001; 81025; 87086; 99283; A9270

== ENCOUNTER 2024-11-14 08:51 | Day surgery (SDC) | payer BC ==
[2024-11-14] MEDS: Lactated Ringers 1,000 ML IV SCH (09:36)
[2024-11-14] MEDS ORDERED: propofoL 500 MG/50 ML 50 ML ONE (10:10)
[2024-11-14] MEDS ORDERED: Lidocaine 2% 5 ML SDV ONE (10:10)
[2024-11-14] MEDS ORDERED: Propofol 200 MG/20 ML SDV ONE (11:28)
== END 2024-11-14 12:15 | disposition home or self-care (01) ==
LOC: MW.SDS 08:51
PROVIDERS: ATTEND Surgery
DX: K64.8 Other hemorrhoids (principal); K64.4 Residual hemorrhoidal skin tags; K59.00 Constipation, unspecified; E78.00 Pure hypercholesterolemia, unspecified; K21.9 Gastro-esophageal reflux disease without esophagitis; F32.A Depression, unspecified; E03.9 Hypothyroidism, unspecified; Z87.891 Personal history of nicotine dependence; Z79.890 Hormone replacement therapy; Z79.899 Other long term (current) drug therapy; Z88.5 Allergy status to narcotic agent; Z86.0101 Personal history of adenomatous and serrated colon polyps
CPT/HCPCS: 45378; J2003; J2704; J7120; 00811